=== PATIENT | male | born 1950 | race Caucasian/White ===

== ENCOUNTER 2022-08-27 16:26 | Emergency (ER) | payer OTHER ==
[~2022-08-27] VITALS: Ht 172.7 cm; Wt 80.0 kg
[2022-08-27 16:36] VITALS: BP 112/82
== END 2022-08-27 18:33 | disposition home or self-care (01) ==
LOC: ER 16:26
DX: S91.311A Laceration without foreign body, right foot, initial encounter (principal); W25.XXXA Contact with sharp glass, initial encounter; Y93.01 Activity, walking, marching and hiking; Y92.018 Other place in single-family (private) house as the place of occurrence of the external cause; Z86.73 Personal history of transient ischemic attack (TIA), and cerebral infarction without residual deficits; Z95.4 Presence of other heart-valve replacement
CPT/HCPCS: 99281